=== PATIENT | female | born 1965 | race American Indian/Alaskan Native ===

== ENCOUNTER 2016-06-28 09:58 | Outpatient (CLI) | payer OTHER ==
--- NOTE | 2016-06-28 11:00 | XRay Report ---
LUMBOSACRAL SPINE, 3 VIEWS: History: Back pain Findings: There is 1 cm anterolisthesis of L5 with respect to the sacrum. The remaining lumbar vertebra are in normal alignment on the lateral image. There is mild dextroscoliosis on the AP image. Moderate to severe degenerative changes at L5-S1 are identified. The remaining levels are within normal limits. Impression: Advanced degenerative changes at L5-S1. Grade 2 anterolisthesis of L5 with respect to the sacrum. No acute injury identified.
--- NOTE | 2016-06-28 11:02 | XRay Report ---
RIGHT HAND RADIOGRAPHS INDICATION: Right hand pain. COMPARISON: None similar. FINDINGS: AP and lateral right and radiographs demonstrate moderate osteoarthritic changes with sclerosis and possible subchondral cysts at the first carpometacarpal joint. Slight degenerative spurring at the thumb interphalangeal joint may also be developing. Intact overall bony articulation however. Grossly unremarkable soft tissues. CONCLUSION: Right hand osteoarthritic changes, greatest at the base of the first metacarpal, as described. Please correlate. Thank you for the opportunity to participate in this patient's care.
== END 2016-06-28 09:59 | disposition home or self-care (01) ==
LOC: XRAY 09:58
PROVIDERS: ATTEND Internal Medicine
DX: M41.87 Other forms of scoliosis, lumbosacral region (principal); M47.897 Other spondylosis, lumbosacral region; M25.541 Pain in joints of right hand; I63.9 Cerebral infarction, unspecified; E05.00 Thyrotoxicosis with diffuse goiter without thyrotoxic crisis or storm; M19.90 Unspecified osteoarthritis, unspecified site
CPT/HCPCS: 72100